=== PATIENT | male | born 1980 | race Caucasian/White ===

== ENCOUNTER 2021-12-30 03:41 | Emergency (ER) | payer SELFPAY ==
[~2021-12-30] VITALS: Ht 180.3 cm; Wt 118.2 kg
[2021-12-30 03:45] VITALS: TEMP 98.7
[2021-12-30 04:54] VITALS: BP 130/82; PULSE 81
== END 2021-12-30 04:54 | disposition home or self-care (01) ==
LOC: COL.ER 03:41
DX: E11.649 Type 2 diabetes mellitus with hypoglycemia without coma (principal); Z79.4 Long term (current) use of insulin